=== PATIENT | female | born 1980 | race Caucasian/White ===

== ENCOUNTER 2019-11-23 20:04 | Emergency (ER) | payer BC ==
--- NOTE | 2019-11-23 20:29 | EDM.PDOC ---
ED HPI GENERAL MEDICAL PROBLEM - General Chief Complaint: ENT Problem Stated Complaint: HARD TO SWOLLOW Time Seen by Provider: 11/23/19 20:11 Source of Information: Reports: Patient History Limitations: Reports: No Limitations - History of Present Illness INITIAL COMMENTS - FREE TEXT/NARRATIVE: Patient is a 39-year-old female presenting to the emergency department with complaints of sore throat, difficulty swallowing, cough, fever, and chills. Patient states that a while back she was exposed to a person who is known COVID positive. She was tested for COVID last Thursday and the results were negative. After this, she started developing symptoms of cough, fever, sore throat, and difficulty swallowing. She was seen in the walk-in clinic today for the symptoms and tested for COVID. She is awaiting results currently. This evening, she states her throat pain and difficulty swallowing worsen. She was try to drink some tea and it came out her nose. She denies any shortness of breath, nausea, vomiting, or diarrhea. She used some [id number] Advil and cough drops in attempt to ease her symptoms. Throat Pain Score (Numeric/FACES): 4 - Related Data Allergies Allergy/AdvReac Type Severity Reaction Status Date / Time doxycycline Allergy Severe Rash Verified 11/23/19 20:17 Home Meds: Home Meds ARIPiprazole [Abilify] 0 mg PO DAILY 11/23/19 [History] FLUoxetine [PROzac] 0 mg PO DAILY 11/23/19 [History] LORazepam [Ativan] 0 mg PO DAILY 11/23/19 [History] Past Medical History Endocrine/Metabolic History: Reports: Obesity/BMI 30+ - Past Surgical History Female Surgical History: Reports: Section Social & Family History - Tobacco Use Smoking Status *Q: Current Every Day Smoker Years of Tobacco use: 17 Packs/Tins Daily: 1 - Caffeine Use Caffeine Use: Reports: Coffee - Recreational Drug Use Recreational Drug Use: No ED ROS ENT - Review of Systems Review Of Systems: See Below Constitutional: Reports: Fever, Chills HEENT: Reports: Ear Pain, Throat Pain, Throat Swelling Respiratory: Reports: Cough. Denies: Shortness of Breath, Wheezing Cardiovascular: Reports: No Symptoms Endocrine: Reports: No Symptoms GI/Abdominal: Reports: No Symptoms : Reports: No Symptoms Musculoskeletal: Reports: No Symptoms Skin: Reports: No Symptoms Neurological: Reports: No Symptoms Psychiatric: Reports: No Symptoms Hematologic/Lymphatic: Reports: No Symptoms Immunologic: Reports: No Symptoms ED EXAM, ENT - Physical Exam Exam: See Below General Appearance: Alert, WD/WN, No Apparent Distress Ears: Normal External Exam, Normal Canal, Hearing Grossly Normal, Normal TMs Mouth/Throat: Normal Gums, Normal Lips, Normal Teeth, Throat Pain, Tonsillar Erythema, Tonsillar Exudates, Tonsillar Swelling. No: Throat Swelling, Uvular Deviation, Uvular Edema Head: Atraumatic, Normocephalic Neck: Normal Inspection, Supple, Non-Tender, Full Range of Motion Respiratory/Chest: No Respiratory Distress, Lungs Clear, Normal Breath Sounds, No Accessory Muscle Use, Chest Non-Tender Cardiovascular: Normal Peripheral Pulses, Regular Rate, Rhythm, No Edema, No Gallop, No JVD, No Murmur, No Rub GI/Abdominal: Normal Bowel Sounds, Soft, Non-Tender, No Organomegaly, No Distention, No Abnormal Bruit, No Mass Neurological: Alert, Oriented, CN II-XII Intact, Normal Cognition, Normal Gait, Normal Reflexes, No Motor/Sensory Deficits Psychiatric: Normal Affect, Normal Mood Skin: Warm, Dry, Intact, Normal Color, No Rash Course - Vital Signs Last Recorded V/S: Last Vital Signs Temp 97.9 F 11/23/19 20:13 Pulse 95 11/23/19 20:13 Resp 16 11/23/19 20:13 BP 155/93 H 11/23/19 20:13 Pulse Ox 99 11/23/19 20:13 - Orders/Labs/Meds Orders: Active Orders 24 hr Category Date Time Status CULTURE STREP A CONFIRMATION [RM] Stat Lab 11/23/19 20:20 Results Rapid Strep w/culture conf [STREP SCRN A RAPID W CULT Lab 11/23/19 20:20 Results CONF] [RM] Stat - Re-Assessments/Exams Free Text/Narrative Re-Assessment/Exam: Patient is a 39-year-old female presenting to the emergency department with concern of worsening sore throat and difficulty swallowing. She was seen in the walk-in clinic today for the symptoms, as well as cough and fever. She was tested for COVID and the results of this are pending. She states this evening she tried to drink some tea and honey to soothe her throat and she had difficulty swallowing it. Stated some of it came out of her nose. She denies any shortness of breath or chest pain. On exam, she does have erythematous tonsils with small exudates. I have ordered a rapid strep test. Her exam is otherwise unremarkable. COVID test is already pending, therefore we will not repeat that this evening. 11/23/19 20:48 Rapid strep was negative. Discussed that this will be sent for culture and infection called a different strain of strep, she will be notified and treatment will be started at that time. Discussed different options to help with her sore throat including cold or warm beverages which ever she finds most soothing, Chloraseptic spray, throat lozenges, and ibuprofen. Recommend that she go home and isolate pending culture results. She is in agreement with plan. Discharge instructions as documented. Departure - Departure Time of Disposition: 20:49 Disposition: Home, Self-Care 01 Condition: Good Clinical Impression: Cough, Impaired swallowing associated with throat pain - Discharge Information *PRESCRIPTION DRUG MONITORING PROGRAM REVIEWED*: No *COPY OF PRESCRIPTION DRUG MONITORING REPORT IN PATIENT KHAI: No Instructions: Sore Throat, [id number] Referrals: Opal Stokes PA-C [Primary Care Provider] - Forms: ED Department Discharge Additional Instructions: Were seen in the emergency department today for cough, intermittent fever and chills, sore throat, difficulty swallowing. Rapid strep screen was done in the ER and found to be negative. You do have pending COVID test completed at the walk-in clinic today. Recommend that you continue symptomatic treatment. Try either cold or hot beverages and whichever is most soothing to you try to stick with those. [id number] Chloraseptic spray can also be helpful. Continue to use throat lozenges as needed. Continue to isolate until culture results are available. Return to ER for any new or worsening symptoms of concern. Sepsis Event Note (ED) - Evaluation Sepsis Screening Result: No Definite Risk - Focused Exam Vital Signs: Vital Signs Temp Pulse Resp BP Pulse Ox 11/23/19 20:13 97.9 F 95 16 155/93 H 99 - My Orders Last 24 Hours: My Active Orders 11/23/19 20:20 CULTURE STREP A CONFIRMATION [RM] Stat Rapid Strep w/culture conf [STREP SCRN A RAPID W CULT CONF] [RM] Stat - Assessment/Plan Last 24 Hours: My Active Orders 11/23/19 20:20 CULTURE STREP A CONFIRMATION [RM] Stat Rapid Strep w/culture conf [STREP SCRN A RAPID W CULT CONF] [RM] Stat
== END 2019-11-23 20:58 | disposition home or self-care (01) ==
LOC: JD.ED 20:04
DX: R05 Cough (principal); R13.10 Dysphagia, unspecified; E66.9 Obesity, unspecified; F17.210 Nicotine dependence, cigarettes, uncomplicated; Z68.42 Body mass index [BMI] 45.0-49.9, adult; Z88.1 Allergy status to other antibiotic agents
CPT/HCPCS: 87081; 87430; 99282; 99284

== ENCOUNTER 2022-01-08 09:38 | Emergency (ER) | payer BC ==
[2022-01-08] MEDS ORDERED: Famotidine 20 MG Tab PO ONE (10:17)
[2022-01-08] MEDS ORDERED: Alum Hydrox/Mag Hydrox/Simeth 30 ML, Lidocaine 2% 15 ML PO ONE ×2 (10:17)
== END 2022-01-08 13:13 | disposition home or self-care (01) ==
LOC: JD.ED 09:38
DX: R07.89 Other chest pain (principal); E66.9 Obesity, unspecified; Z68.41 Body mass index [BMI] 40.0-44.9, adult; Z88.1 Allergy status to other antibiotic agents
CPT/HCPCS: 36415; 71045; 80053; 83690; 83735; 84484; 85025; 85379; 93005; 99285; A9270